=== PATIENT | male | born 1955 ===

== ENCOUNTER 2017-07-25 08:08 | Observation (INO) | payer OTHER ==
[2017-07-25 08:20] VITALS: BMI 30.7
[2017-07-25] MEDS ORDERED: Iohexol 240 (50 ml) PO ONE (08:37)
[2017-07-25] MEDS ORDERED: Sodium Chloride 0.9% 1,000 ML IV STA (08:37)
--- NOTE | 2017-07-25 09:01 | ED PDOC ---
HPI:Nausea, Vomiting, Diarrhea Time Seen by Provider: 07/25/17 08:11 Chief Complaint (Nursing): Abdominal Pain Chief Complaint (Provider): nausea, vomiting History Per: Patient History/Exam Limitations: no limitations Onset/Duration Of Symptoms: Hrs, Sudden Onset Current Symptoms Are (Timing): Still Present Have you had recent travel within the past 21 days to any of the following countries: [place], [place], [place] or [place]?: No Associated Symptoms: Nausea, Vomiting. denies: Fever, Back Pain, Chest Pain, Urinary Symptoms Additional History Per: Patient Additional Complaint(s): 62yo male,with history of hypertension and high cholesterol, presents to ED with complaints of sudden onset vomiting x 5 since last night. Patient states the vomiting is non-bloody and non-bilious and is associated with nausea and abdominal pain. Patient states his last bowel movement was yesterday, which was normal. He denies any fever, chills, chest pain, diarrhea, shortness of breath, hematemesis, back pain, or urinary symptoms. He denies any new food or drinks in his diet as well. He has no other complaints. PMD: Dr. Desir Past Medical History Reviewed: Historical Data, Nursing Documentation, Vital Signs Vital Signs: Last Vital Signs Temp 99.0 F 07/25/17 08:20 Pulse 100 H 07/25/17 08:20 Resp 18 07/25/17 08:20 BP 115/82 07/25/17 08:20 Pulse Ox 99 07/25/17 08:20 - Medical History PMH: HTN, Hypercholesterolemia Denies: Diabetes - Surgical History Surgical History: No Surg Hx - Family History Family History: States: Unknown Family Hx - Home Medications Home Medications: Ambulatory Orders Medication Instructions Recorded Acetaminophen [Tylenol 325mg tab] 650 mg PO Q6H PRN #60 tab 07/26/17 Amlodipine Besylate/Benazepril 1 cap PO DAILY #30 capsule 07/26/17 [Amlodipine-Benazepril 10-40 mg] Aspirin [Ecotrin] 81 mg PO DAILY #30 tabec 07/26/17 Atorvastatin [Lipitor] 40 mg PO HS #30 tab 07/26/17 Calcium Carbonate 1,250 mg PO TID #90 tab 07/26/17 Cholecalciferol [Vitamin D 1000 IU] 2,000 iu PO BID #60 tab 07/26/17 Metoprolol Succinate [Toprol XL] 25 mg PO DAILY #30 tab 07/26/17 Omeprazole 20 mg PO DAILY #30 capsule. 07/26/17 - Allergies Allergies/Adverse Reactions: Allergies Allergy/AdvReac Type Severity Reaction Status Date / Time No Known Allergies Allergy Verified 07/25/17 08:23 Review of Systems ROS Statement: Except As Marked, All Systems Reviewed And Found Negative Constitutional: Negative for: Fever, Chills Cardiovascular: Negative for: Chest Pain Respiratory: Negative for: Shortness of Breath Gastrointestinal: Positive for: Nausea, Vomiting, Abdominal Pain. Negative for : Diarrhea, Constipation, Hematemesis Genitourinary Male: Negative for: Dysuria, Incontinence, Hematuria Musculoskeletal: Negative for: Back Pain Physical Exam - Reviewed Nursing Documentation Reviewed: Yes Vital Signs Reviewed: Yes - Physical Exam Appears: Positive for: Non-toxic Head Exam: Positive for: ATRAUMATIC, NORMAL INSPECTION, NORMOCEPHALIC Skin: Positive for: Normal Color, Warm, Dry Eye Exam: Positive for: Normal appearance, EOMI, PERRL Neck: Positive for: Normal, Painless ROM, Supple Cardiovascular/Chest: Positive for: Regular Rate, Rhythm. Negative for: Murmur Respiratory: Positive for: Normal Breath Sounds. Negative for: Wheezing Gastrointestinal/Abdominal: Positive for: Soft, Tenderness (mid upper abdomen tenderness). Negative for: Mass, Rebound Back: Positive for: Normal Inspection. Negative for: L CVA Tenderness, R CVA Tenderness Extremity: Positive for: Normal ROM. Negative for: Pedal Edema, Deformity Neurologic/Psych: Positive for: Alert, Oriented. Negative for: Motor/Sensory Deficits - Laboratory Results Result Diagrams: 07/25/17 09:03 07/25/17 09:03 Interpretation Of Abn Labs: 12.1 wbc - ECG ECG: Positive for: Interpreted By Me, Viewed By Me ECG Rhythm: Positive for: Nonspecific Changes (lateral) O2 Sat by Pulse Oximetry: 99 (RA) Pulse Ox Interpretation: Normal Medical Decision Making Medical Decision Making: Impression: Abdominal pain with nausea and vomiting Plan: -- Labs -- Zofran 4mg IV -- IV Fluids -- Pepcid 20mg IV -- Toradol 15mg IV -- CT Abdomen and Pelvis with PO and IV Contrast Time: 1300 CT Abdomen/Pelvis FINDINGS: LOWER THORAX: Elevated right hemidiaphragm, nonspecific. No pleural or pericardial effusion or infiltrate bilaterally. LIVER: Unremarkable. No gross lesion or ductal dilatation. GALLBLADDER AND BILE DUCTS: A mildly distended gallbladder is appreciated which is otherwise unremarkable. No direct finding to suspect acute cholecystitis at this time. Clinically correlate nevertheless. PANCREAS: Unremarkable. No gross lesion or ductal dilatation. SPLEEN: Unremarkable. ADRENALS: Unremarkable. No mass. KIDNEYS AND URETERS: Unremarkable. No hydronephrosis. No solid mass. VASCULATURE: Unremarkable. No aortic aneurysm. BOWEL: No bowel obstruction appreciable as imaged. Sigmoid diverticulosis again identified without diverticulitis. The stomach is mildly distended with oral contrast appear unremarkable otherwise. APPENDIX: Normal appendix. PERITONEUM: Unremarkable. No free fluid. No free air. LYMPH NODES: Unremarkable. No enlarged lymph nodes. BLADDER: Unremarkable. REPRODUCTIVE: Enlarged prostate gland. BONES: No acute fracture. OTHER FINDINGS: None. IMPRESSION: Nonacute abdomen pelvis CT examination. Elevated right hemidiaphragm appreciated of uncertain origin. Sigmoid diverticulosis without diverticulitis. Gallbladder is distended but otherwise appears unremarkable. Time: 1350 Due to distended gallbladder, US Abdomen ordered. Scribe Attestation: Documented by Samantha Shah acting as a scribe for Kamar Kwok MD Provider Attestation: All medical record entries made by the Scribe were at my direction and personally dictated by me. I have reviewed the chart and agree that the record accurately reflects my personal performance of the history, physical exam, medical decision making, and the department course for this patient. I have also personally directed, reviewed, and agree with the discharge instructions and disposition. Disposition - Clinical Impression Clinical Impression: Abnormal EKG - Patient ED Disposition Is Patient to be Admitted: Transfer of Care - Disposition Disposition: Transfer of Care Disposition Time: 15:00 Condition: STABLE Patient Signed Over To: Dano Lunsford Handoff Comments: Pending US studies, possible admission.
[2017-07-25 09:07] LABS: BASO % 0.1 % (0.0-2.0); EOS # 0.1 K/uL (0.0-0.7); EOS % 0.4 % (0.0-4.0); HEMOGLOBIN 14.5 g/dL (12.0-18.0); LYMPH # 0.4 K/uL (1.0-4.3); LYMPH % 3.3 % (20.0-40.0); MEAN CELL VOLUME 92.3 fl (80.0-94.0); MEAN CORPUSCULAR HEMOGLOBIN 31.3 pg (27.0-31.0); MEAN CORPUSCULAR HGB CONC 33.9 g/dL (33.0-37.0); MEAN PLATELET VOLUME 8.5 fl (7.2-11.7); MONO # 0.4 K/uL (0.0-0.8); NEUT # 11.3 K/uL (1.8-7.0); NEUT % 93.2 % (50.0-75.0); NRBC % 0.1 % (0.0-0.0); PLATELET COUNT 236 K/uL (130-400); RBC 4.64 Mil/uL (4.40-5.90); RED CELL DISTRIBUTION WIDTH 13.3 % (11.5-14.5); WHITE BLOOD COUNT 12.1 K/uL (4.8-10.8)
[2017-07-25 09:23] LABS: ALB/GLOB RATIO 1.2 (1.0-2.1); ALBUMIN 4.2 g/dL (3.5-5.0); ALT/SGPT 62 U/L (21-72); AST/SGOT 44 U/L (17-59); BLOOD UREA NITROGEN 15 mg/dl (9-20); CALCIUM 9.1 mg/dL (8.4-10.2); GFR AFRICAN-AMERICAN > 60; GFR NON-AFRICAN AMERICAN > 60; LIPASE 78 U/L (23-300); PARTIAL THROMBOPLASTIN TIME 27.3 Seconds (25.6-37.1); PROTHROMBIN TIME 11.6 Seconds (9.8-13.1)
[2017-07-25] MEDS ORDERED: Iohexol 240 (50 ml) ONE (09:35)
--- NOTE | 2017-07-25 09:44 | CARD ---
APPROVED REPORT EKG Measurement Heart [id number] <Conclusion> Normal sinus rhythm Left axis deviation ST & T wave abnormality, consider anterior ischemia Abnormal ECG
[2017-07-25 10:52] LABS: BANDS 3 % (0-2); LYMPHOCYTE 1 % (20-50); MONOCYTE 4 % (0-10); NEUTROPHIL 91 % (42-75); REACTIVE LYMPHOCYTES 1 % (0-0); TOTAL CELLS COUNTED 100
[2017-07-25 10:53] LABS: PLATELET ESTIMATE NORMAL (NORMAL)
[2017-07-25] MEDS ORDERED: Iohexol 300 100 ML IJ ONE (11:53)
[2017-07-25] MEDS ORDERED: Sodium Chloride 0.9% 100 ML ONE (11:53)
--- NOTE | 2017-07-25 12:52 | CT ---
PROCEDURE: CT Abdomen and Pelvis with contrast HISTORY: abd pain COMPARISON: None. TECHNIQUE: Following oral and intravenous contrast administration, a CT examination of the abdomen and pelvis performed from the domes of the diaphragms to the symphysis pubis with reformatted datasets provided not only axial but also sagittal and coronal series. Contrast dose: Omnipaque 300, 95 cc Radiation dose: Total exam DLP = 672.61 mGy-cm. This CT exam was performed using one or more of the following dose reduction techniques: Automated exposure control, adjustment of the mA and/or kV according to patient size, and/or use of iterative reconstruction technique. FINDINGS: LOWER THORAX: Elevated right hemidiaphragm, nonspecific. No pleural or pericardial effusion or infiltrate bilaterally. LIVER: Unremarkable. No gross lesion or ductal dilatation. GALLBLADDER AND BILE DUCTS: A mildly distended gallbladder is appreciated which is otherwise unremarkable. No direct finding to suspect acute cholecystitis at this time. Clinically correlate nevertheless. PANCREAS: Unremarkable. No gross lesion or ductal dilatation. SPLEEN: Unremarkable. ADRENALS: Unremarkable. No mass. KIDNEYS AND URETERS: Unremarkable. No hydronephrosis. No solid mass. VASCULATURE: Unremarkable. No aortic aneurysm. BOWEL: No bowel obstruction appreciable as imaged. Sigmoid diverticulosis again identified without diverticulitis. The stomach is mildly distended with oral contrast appear unremarkable otherwise. APPENDIX: Normal appendix. PERITONEUM: Unremarkable. No free fluid. No free air. LYMPH NODES: Unremarkable. No enlarged lymph nodes. BLADDER: Unremarkable. REPRODUCTIVE: Enlarged prostate gland. BONES: No acute fracture. OTHER FINDINGS: None. IMPRESSION: Nonacute abdomen pelvis CT examination. Elevated right hemidiaphragm appreciated of uncertain origin. Sigmoid diverticulosis without diverticulitis. Gallbladder is distended but otherwise appears unremarkable.
--- NOTE | 2017-07-25 15:22 | ED PDOC ---
- Laboratory Results Result Diagrams: 07/25/17 09:03 07/25/17 09:03 - ECG O2 Sat by Pulse Oximetry: 99 (RA) Medical Decision Making Medical Decision Making: Time: 15:00 Patient is signed over to me by Dr. Norma Kwok pending US and reevaluation. Time: 1540 US Abdomen FINDINGS: LIVER: Measures 15.9 cm in length. Normal echogenicity of the liver parenchyma. No mass. No intrahepatic bile duct dilatation. GALLBLADDER: Unremarkable. No gallstones. COMMON BILE DUCT: Measures 3.7 mm. No stones. No dilatation. PANCREAS: Unremarkable as visualized. No mass. No ductal dilatation. RIGHT KIDNEY: Measures 5.1 x 11 cm in length. Normal echogenicity. No calculus, mass, or hydronephrosis. AORTA: No aneurysmal dilatation. IVC: Unremarkable. OTHER FINDINGS: None . IMPRESSION: No significant or acute findings to account for/ related to the clinical presentation. Time: 1617 [facility] under Dr. Griffiths for abdominal pain, lateral changes in EKG. FP resident aware. Plan discussed with patient who is agreeable. Scribe Attestation: Documented by Samantha Shah acting as a scribe for Dano Lunsford MD. Scribe Attestation: All medical record entries made by the Scribe were at my direction and personally dictated by me. I have reviewed the chart and agree that the record accurately reflects my personal performance of the history, physical exam, medical decision making, and the department course for this patient. I have also personally directed, reviewed, and agree with the discharge instructions and disposition. Disposition Counseled Patient/Family Regarding: Diagnosis - Clinical Impression Clinical Impression: Abnormal EKG - POA Present On Arrival: None - Disposition Disposition: Hospitalized as Observation Patient Disposition Time: 16:00 Condition: STABLE
--- NOTE | 2017-07-25 15:44 | US ---
HISTORY: distended gall bladder COMPARISON: None. TECHNIQUE: Sonographic evaluation of the right upper quadrant of the abdomen. FINDINGS: LIVER: Measures 15.9 cm in length. Normal echogenicity of the liver parenchyma. No mass. No intrahepatic bile duct dilatation. GALLBLADDER: Unremarkable. No gallstones. COMMON BILE DUCT: Measures 3.7 mm. No stones. No dilatation. PANCREAS: Unremarkable as visualized. No mass. No ductal dilatation. RIGHT KIDNEY: Measures 5.1 x 11 cm in length. Normal echogenicity. No calculus, mass, or hydronephrosis. AORTA: No aneurysmal dilatation. IVC: Unremarkable. OTHER FINDINGS: None . IMPRESSION: No significant or acute findings to account for/ related to the clinical presentation.
--- NOTE | 2017-07-25 19:40 | CP.PCM.HP ---
History of Present Illness - History of Present Illness History of Present Illness: 62 yo ,m, PMhx/o HTN, HLD, MEN 1, hx/o Left arm DVT 1 year ago presents to ED c/ o sudden nausea and 5 episodes of non-bloddy, non-billious vomiting started last night about midnight 12:00 AM w/o associated abd pain. Patient reports had dinner early 8:30 and after dinner he ate 2 sweat ray and started feeling nauseous at midnight, with vomiting with food content, and very weak in the morning due to dehydration. He also reports dry cough and dry throat started 1 day ago. He denies fever, chest pain, SOB, heartburn, hx/o gastritis, odd food ingestion, sick contact , recent travel. Patient reports a recent parathyroid surgery 1 month ago. Denies hx/o CAD, but reports a coronary catheterization 2 years ago with mild coronary obstruction w/o needing stent. Denies hx/o exertional or resting precordial chest pain. Reports left arm DVT 1 year ago and had treatment Coumadin x 6 months. On evaluation in ED patient well hydrated , denies abd pain to his history, vomiting subsided and he was able to tolerate a tray of food w/o vomiting. PMD: Eva Collazo Clerical Administrator: Dr Horvath PMHX: HTN, HLD, MEN 1, hx/o Left arm DVT 1 Allergies: NKDA Meds: Aspirin 82 mg daily, Atorvastatin 40 mg daily, Calcium Carbonate 1250 1 tab TID, Cholecalciferol 2000 U daily, Metoprolol succinate 25 mg daily, Amlodipine/Benazepril 10-40 ) 1 tab daily Omeprazol 20 mg daily PSurghx: Parathyroidectomy 1 month ago with one parathyroid graft as per patient PFhx: 2 son with MEN 1, 1 sister with MEN 1 PShx: +ETOH occs, denies rect drugs, cig Status: full code ED course VS: normal except HR: 100 PE: Abd: skin superficial small nodules scattered on abd and back. No TD. Labs: CBC : 12.2 >14.5<236 CMP: normal leukocytosis with left shift deviation. Lymphopenia. -EKG T wave inversion V1-V4. No old EKG to compare -Troponin in ED neg Imaging: CT Abd: Non acute abdomen pelvis CT examination. Elevated right hemidiaphragm appreciated of uncertain origin. Sigmoid diverticulosis without diverticulitis. Gallbladder is distended but otherwise appears unremarkable. Abs US: Normal Meds: Famotidine, Toradol, Zofran, NS 1L Present on Admission - Present on Admission Any Indicators Present on Admission: Yes History of DVT/PE: Yes History of Uncontrolled Diabetes: No Urinary Catheter: No Decubitus Ulcer Present: No Review of Systems - Review of Systems All systems: reviewed and no additional remarkable complaints except - Respiratory Respiratory: Cough - Gastrointestinal Gastrointestinal: Nausea, Vomiting Past Patient History - Infectious Disease Hx of Infectious Diseases: None - Past Social History Smoking Status: Never Smoked - CARDIAC Hx Hypercholesterolemia: Yes Hx Hypertension: Yes - PSYCHIATRIC Hx Substance Use: No - SURGICAL HISTORY Hx Parathyroidectomy: Yes - ANESTHESIA Hx Anesthesia: Yes Hx Anesthesia Reactions: No Meds Allergies/Adverse Reactions: Allergies Allergy/AdvReac Type Severity Reaction Status Date / Time No Known Allergies Allergy Verified 07/25/17 08:23 Physical Exam - Constitutional Appears: Non-toxic, No Acute Distress - Head Exam Head Exam: ATRAUMATIC, NORMOCEPHALIC - Eye Exam Eye Exam: Normal appearance - ENT Exam ENT Exam: Mucous Membranes Moist Additional comments: oropharynx erythema. b/l tonsil erythema. no exudate seen - Neck Exam Neck exam: Positive for: Full Rom, Normal Inspection - Respiratory Exam Respiratory Exam: Clear to Auscultation Bilateral. absent: Rales, Rhonchi, Wheezes - Cardiovascular Exam Cardiovascular Exam: REGULAR RHYTHM, +S1, +S2 - GI/Abdominal Exam GI & Abdominal Exam: Normal Bowel Sounds, Rebound, Soft. absent: Guarding, Tenderness - Extremities Exam Extremities exam: Positive for: normal capillary refill, normal inspection. Negative for: pedal edema - Back Exam Back exam: NORMAL INSPECTION - Neurological Exam Neurological exam: Alert, Oriented x3 - Psychiatric Exam Psychiatric exam: Normal Affect, Normal Mood - Skin Additional comments: skin superficial small nodules scattered on abd and back Results - Vital Signs Recent Vital Signs: Last Vital Signs Temp 99.0 F 07/25/17 08:20 Pulse 100 H 07/25/17 08:20 Resp 18 07/25/17 08:20 BP 115/82 07/25/17 08:20 Pulse Ox 99 07/25/17 16:22 - Labs Result Diagrams: 07/25/17 09:03 04/26/18 09:03 Labs: Laboratory Results - last 24 hr 07/25/17 07/25/17 07/25/17 09:03 09:03 09:03 WBC 12.1 H RBC 4.64 Hgb 14.5 Hct 42.8 MCV 92.3 MCH 31.3 H MCHC 33.9 RDW 13.3 Plt Count 236 MPV 8.5 Neut % (Auto) 93.2 H Lymph % (Auto) 3.3 L Yancey % (Auto) 3.0 Eos % (Auto) 0.4 Baso % (Auto) 0.1 Neut # (Auto) 11.3 H Lymph # (Auto) 0.4 L Yancey # (Auto) 0.4 Eos # (Auto) 0.1 Baso # (Auto) 0.0 Neutrophils % (Manual) 91 H Band Neutrophils % 3 H Lymphocytes % (Manual) 1 L Reactive Lymphs % 1 H Monocytes % (Manual) 4 Platelet Estimate Normal RBC Morphology Normal PT 11.6 INR 1.0 APTT 27.3 Sodium 146 Potassium 3.7 Chloride 105 Carbon Dioxide 25 Anion Gap 20 BUN 15 Creatinine 0.9 Est GFR ( Amer) > 60 Est GFR (Non-Af Amer) > 60 Random Glucose 150 H Calcium 9.1 Total Bilirubin 0.7 AST 44 ALT 62 Alkaline Phosphatase 63 Troponin I < 0.0120 Total Protein 7.7 Albumin 4.2 Globulin 3.4 Albumin/Globulin Ratio 1.2 Lipase 78 Assessment & Plan - Assessment and Plan (Free Text) Plan: 62 yo ,m, PMhx/o HTN, HLD, MEN 1, hx/o Left arm DVT 1 year ago admitted for abnormal EKG and dyspepsia 1) Dyspepsia Secondary to mild dietary indigestion of food -denies hx/o gastritis, GERD, abd pain -CT Abd: sigmoid diverticulosis w/o diverticulitis. Gallbladder is distended but otherwise appears unremarkable. Elevated right hemidiaphragm appreciated of uncertain origin -Abd US : normal -s/p zofran, pepcid, IV fluids ED -Patient tolerated regular diet in Ed -c/w liquid diet -zofran nausea PRN -Pepcid 20 mg daily 2) Abnormal EKG may be secondary to CAD in a patient with MEN 1 ( hypercalcemia) to r/o ACS -no chest pain, but with nausea and vomiting Hx/o coronary catheterization 2 years ago w/o stent -EKG T wave inversion V1-V4. No old EKG to compare -Troponin in ED neg -F/u troponin x2, f/u EKG 3) Cough May be secondary to URI onset -noticed leukocytosis with left shift deviation -CT Abd: Elevated right hemidiaphragm appreciated of uncertain origin -f/u CBC -f/u CXR 4) HTN -Controlled -c/w home medication 5) MEN 1 -recent parathyroid surgery [facility] -Fhx/o MEN 1 on 2 son, 1 sister -Ca level normal. -c/w Calcium and Vit D supplements -will monitor 6) Hx/o DVT -Left arm after coronary catheterization 2 years ago -had treatment with Coumadin x 6 months 7) DVT Prophylaxis -Lovenox 40 mg SC daily
[2017-07-26 07:36] VITALS: TEMP 98.6
[2017-07-26] MEDS ORDERED: Enoxaparin 40 mg Syringe SC SCH (09:00)
[2017-07-26] MEDS ORDERED: AMLODIPINE BESYLATE PO SCH (09:00)
[2017-07-26] MEDS ORDERED: Pantoprazole 20 mg EC Tab PO SCH (09:00)
[2017-07-26] MEDS ORDERED: BENAZEPRIL PO SCH (09:00)
[2017-07-26] MEDS ORDERED: Metoprolol Succinate 25 mg XL Tab PO SCH (09:00)
[2017-07-26] MEDS ORDERED: [UNRECOGNIZED DRUG - OTHER] PO SCH (09:00)
[2017-07-26] MEDS: Cholecalciferol 1,000 INTLU TAB PO SCH ×2 (09:02→16:16)
--- NOTE | 2017-07-26 09:05 | RAD ---
HISTORY: cough.abnormal EKG COMPARISON: No prior. TECHNIQUE: Chest PA and lateral FINDINGS: LUNGS: No active pulmonary disease. PLEURA: No significant pleural effusion identified. No pneumothorax apparent. CARDIOVASCULAR: Atherosclerotic aortic calcifications. Cardiomediastinal silhouette within normal limits. OSSEOUS STRUCTURES: Degenerative changes. VISUALIZED UPPER ABDOMEN: Retained oral contrast from recent CT scan of the abdomen and pelvis. OTHER FINDINGS: None. IMPRESSION: No active disease.
--- NOTE | 2017-07-26 09:30 | CP.PCM.PN ---
Subjective - Date & Time of Evaluation Date of Evaluation: 07/26/17 Time of Evaluation: 08:50 - Subjective Subjective: Pt seen and examined at bedside. Reports slight, non productive cough. Denies significant overnght events, denies: CP/SOB/N/V. Denies abdominal pain. Objective - Vital Signs/Intake and Output Vital Signs (last 24 hours): Temp Pulse Resp BP Pulse Ox 98.6 F 66 18 111/69 96 07/26/17 07:36 07/26/17 09:04 07/26/17 07:36 07/26/17 09:04 07/26/17 07:36 - Medications Medications: Current Medications Acetaminophen (Tylenol 325mg Tab) 650 mg PO Q6 PRN PRN Reason: Pain, Mild (1-3) Acetaminophen (Tylenol 325mg Tab) 650 mg PO Q6 PRN PRN Reason: Fever >100.4 F Amlodipine Besylate (Norvasc) 10 mg PO DAILY [facility] Last Admin: 07/26/17 09:03 Dose: 10 mg Aspirin (Ecotrin) 81 mg PO DAILY [facility] Last Admin: 07/26/17 09:03 Dose: 81 mg Atorvastatin Calcium (Lipitor) 40 mg PO HS [facility] Calcium Carbonate (Oscal) 1,250 mg PO TID [facility] Last Admin: 07/26/17 09:01 Dose: 1,250 mg Cholecalciferol (Vitamin D) 2,000 intlu PO BID [facility] Last Admin: 07/26/17 09:02 Dose: 2,000 intlu Enoxaparin Sodium (Lovenox) 40 mg SC DAILY [facility] PRN Reason: Protocol Last Admin: 07/26/17 09:01 Dose: 40 mg Lisinopril (Zestril) 40 mg PO DAILY [facility] Last Admin: 07/26/17 09:02 Dose: 40 mg Metoprolol Succinate (Toprol Xl) 25 mg PO DAILY [facility] Last Admin: 07/26/17 09:04 Dose: 25 mg Morphine Sulfate (Morphine) 2 mg IVP Q4 PRN PRN Reason: Pain, severe (8-10) Ondansetron HCl (Zofran Inj) 4 mg IVP Q6 PRN PRN Reason: Nausea/Vomiting Pantoprazole Sodium (Protonix Ec Tab) 20 mg PO DAILY [facility] Last Admin: 07/26/17 09:04 Dose: 20 mg - Labs Labs: 07/25/17 09:03 07/25/17 09:03 PT 11.6 Seconds (9.8-13.1) 07/25/17 09:03 INR 1.0 (0.9-1.2) 07/25/17 09:03 APTT 27.3 Seconds (25.6-37.1) 07/25/17 09:03 - Constitutional Appears: Well, No Acute Distress - Eye Exam Eye Exam: EOMI - Respiratory Exam Respiratory Exam: Clear to Ausculation Bilateral, NORMAL BREATHING PATTERN. absent: Wheezes - Cardiovascular Exam Cardiovascular Exam: +S1, +S2 - GI/Abdominal Exam GI & Abdominal Exam: Soft, Normal Bowel Sounds. absent: Tenderness - Neurological Exam Neurological Exam: Alert, Awake, CN II-XII Intact, Oriented x3 - Psychiatric Exam Psychiatric exam: Normal Affect, Normal Mood Assessment and Plan - Assessment and Plan (Free Text) Plan: 62 yo ,m, PMhx/o HTN, HLD, MEN 1, hx/o Left arm DVT 1 year ago admitted for abnormal EKG and dyspepsia Dyspepsia -Secondary to mild dietary indigestion of food -denies hx/o gastritis, GERD, abd pain; N/V resolved -CT Abd: sigmoid diverticulosis w/o diverticulitis. Gallbladder is distended but otherwise appears unremarkable. Elevated right hemidiaphragm appreciated of uncertain origin -Abd US: unremarkable -s/p zofran, pepcid, IV fluids ED -Patient tolerated regular diet in Ed -c/w liquid diet -Pepcid 20 mg daily -Pending surgery consult. Abnormal EKG -may be secondary to CAD in a patient with MEN 1 (hypercalcemia) -r/o ACS -no chest pain -Hx/o coronary catheterization 2 years ago w/o stent -EKG T wave inversion V1-V4. No old EKG to compare; f/u: EKG: non specific ST abnormality -Troponin neg x 3 -Cardiology consulted: Dr. Land recommendations appreciated Cough -May be secondary to URI onset -noticed leukocytosis with left shift deviation -CT Abd: Elevated right hemidiaphragm appreciated of uncertain origin -f/u CBC -CXR: no active disease HTN -Controlled -c/w home medication MEN 1 -recent parathyroid surgery [facility] -Fhx/o MEN 1 on 2 son, 1 sister -Ca level normal. -Amylase/lipase: wnl -c/w Calcium and Vit D supplements -will monitor Hx/o DVT -Left arm after coronary catheterization 2 years ago -had treatment with Coumadin x 6 months DVT Prophylaxis -Lovenox 40 mg SC daily Disposition planning - Pending cardiology eval
--- NOTE | 2017-07-26 10:19 | CARD ---
APPROVED REPORT EKG Measurement Heart [id number] <Conclusion> Normal sinus rhythm Nonspecific ST abnormality Abnormal ECG
--- NOTE | 2017-07-26 14:19 | CP.PCM.CON ---
History of Present Illness - History of Present Illness History of Present Illness: General Surgery Consult for Dr. Brown Reason for consult: nausea/vomiting, GB wall thickening 62M with PMH that includes HTN, HLD, MEN 1 presents to [facility] for complaint of nausea/vomiting. Patient was admitted on 07/25. Patient States that symptoms began on Saturday. He reports 5 episodes of non-bloody, non-billious emesis that day. Patient states that he ate dinner prior to onset of symptoms. Patient reports never having these symptoms in the past. He denies any abdominal pain. Patient has not had any nausea/vomiting since prior to coming to the hospital. Denies any alleviating or aggravating factors. Denies sick contacts or recent ilness. Denies fever/chills, weakness, fatigue, cp, SOB, abdominal pain, diarrhea, incontinence, urinary symptoms. PMD: Eva Collazo PMH: HTN, HLD, MEN 1, h/o Left arm DVT Meds: As per EMR Allergies: NKDA PSH: Parathyroidectomy FH: 2 sons and 1 sister with MEN 1 Social: denies tobaccoor illicit drug use, EtOH socially, lives with Review of Systems - Review of Systems All systems: reviewed and no additional remarkable complaints except (as per HPI ) Past Patient History - Infectious Disease Hx of Infectious Diseases: None - Past Medical History & Family History Past Medical History?: No - Past Social History Smoking Status: Never Smoked - CARDIAC Hx Cardiac Disorders: Yes (HTN, high cholesterol) Hx Angina: No Hx Atrial Fibrillation: No Hx Cardia Arrhythmia: No Hx Circulatory Problems: No Hx Congestive Heart Failure: No Hx Heart Attack: No Hx Heart Murmur: No Hx Heart Transplant: No Hx Hypercholesterolemia: No Hx Hypertension: Yes Hx Hypotension: No Hx Internal Defibrillator: No Hx Mitral Valve Prolapse: No Hx Pacemaker: No Hx Peripheral Edema: No Hx Peripheral Vascular Disease: No - PULMONARY Hx Respiratory Disorders: No - NEUROLOGICAL Hx Neurological Disorder: No - HEENT Hx HEENT Problems: No - RENAL Hx Chronic Kidney Disease: No - ENDOCRINE/METABOLIC Hx Endocrine Disorders: No - HEMATOLOGICAL/ONCOLOGICAL Hx Blood Disorders: No Hx AIDS: No Hx Anemia: No Hx Blood Transfusions: No Hx Blood Transfusion Reaction: No Hx Bruising: No Hx Cancer: No Hx Chemotherapy: No Hx Cirrhosis: No Hx Gum Bleeding: No Hx Hemophilia: No Hx Hepatitis A: No Hx Hepatitis B: No Hx Hepatitis C: No Hx Human Immunodeficiency Virus (HIV): No Hx Leukemia: No Hx Metastesis: No Hx Shingles: No Hx Sickle Cell Disease: No Hx Unexplained Bleeding: No Hx von Willebrand's Disease: No - INTEGUMENTARY Hx Dermatological Problems: No Hx Basil Cell: No Hx Ibanez: No Hx Cellulitis: No Hx Eczema: No Hx Melanoma: No Hx Psoriasis: No Hx Squamous Cell: No - MUSCULOSKELETAL/RHEUMATOLOGICAL Hx Musculoskeletal Disorders: No Hx Arthritis: No Hx Back Pain: No Hx Degenerative Joint Disease: No Hx Falls: No Hx Fractures: No Hx Gout: No Hx Herniated Disk: No Hx Myasthenia Gravis: No Hx Osteoarthritis: No Hx Osteomyelitis: No Hx Osteoporosis: No Hx Rhabdomyolysis: No Hx Rheumatoid Arthritis: No Hx Spinal Stenosis: No Hx Unsteady Gait: No - GASTROINTESTINAL Hx Gastrointestinal Disorders: No Hx Bowel Surgery: No Hx Clostridium Difficile: No Hx Colitis: No Hx Colostomy: No Hx Constipation: No Hx Crohn's Disease: No Hx Diarrhea: No Hx Diverticulitis: No Hx Esophageal Varices: No Hx Fatty Liver Disease: No Hx Gall Bladder Disease: No Hx Gastritis: No Hx Gastroesophageal Reflux: No Hx Hemorrhoids: No Hx Ileostomy: No Hx Irritable Bowel: No Hx Liver Failure: No Hx Nausea: No Hx Pancreatitis: No HX Swallowing Problems: No Hx Ulcer: No Hx Vomiting: No - GENITOURINARY/GYNECOLOGICAL Hx Genitourinary Disorders: No Hx Bladder Cancer: No Hx Bladder Stone: No Hx Hematuria: No Hx Incontinence: No Hx Prostate Cancer: No Hx Prostate Problems: No Hx Reproductive Disorders: No Hx Sexually Transmitted Disorders: No Hx Urinary Tract Infection: No - PSYCHIATRIC Hx Psychophysiologic Disorder: No Hx Anxiety: No Hx Bipolar Disorder: No Hx Depression: No Hx Emotional Abuse: No Hx Hallucinations: No Hx Panic Symptoms: No Hx Paranoia: No Hx Post Traumatic Stress Disorder: No Hx Psychosis: No Hx Physical Abuse: No Hx Schizophrenia: No Hx Sexual Abuse: No Hx Substance Use: No - SURGICAL HISTORY Hx Parathyroidectomy: Yes - ANESTHESIA Hx Anesthesia: Yes Hx Anesthesia Reactions: No Meds Allergies/Adverse Reactions: Allergies Allergy/AdvReac Type Severity Reaction Status Date / Time No Known Allergies Allergy Verified 07/25/17 08:23 - Medications Medications: Current Medications Acetaminophen (Tylenol 325mg Tab) 650 mg PO Q6 PRN PRN Reason: Pain, Mild (1-3) Acetaminophen (Tylenol 325mg Tab) 650 mg PO Q6 PRN PRN Reason: Fever >100.4 F Amlodipine Besylate (Norvasc) 10 mg PO DAILY [facility] Last Admin: 07/26/17 09:03 Dose: 10 mg Aspirin (Ecotrin) 81 mg PO DAILY [facility] Last Admin: 07/26/17 09:03 Dose: 81 mg Atorvastatin Calcium (Lipitor) [address] [facility] Cholecalciferol (Vitamin D) 2,000 intlu PO BID [facility] Last Admin: 07/26/17 09:02 Dose: 2,000 intlu Enoxaparin Sodium (Lovenox) 40 mg SC DAILY [facility] PRN Reason: Protocol Last Admin: 07/26/17 09:01 Dose: 40 mg Lisinopril (Zestril) 40 mg PO DAILY [facility] Last Admin: 07/26/17 09:02 Dose: 40 mg Metoprolol Succinate (Toprol Xl) 25 mg PO DAILY [facility] Last Admin: 07/26/17 09:04 Dose: 25 mg Morphine Sulfate (Morphine) 2 mg IVP Q4 PRN PRN Reason: Pain, severe (8-10) Ondansetron HCl (Zofran Inj) 4 mg IVP Q6 PRN PRN Reason: Nausea/Vomiting Pantoprazole Sodium (Protonix Ec Tab) 20 mg PO DAILY [facility] Last Admin: 07/26/17 09:04 Dose: 20 mg Physical Exam - Constitutional Appears: Well, Non-toxic, No Acute Distress - Head Exam Head Exam: ATRAUMATIC, NORMOCEPHALIC - Eye Exam Eye Exam: EOMI, Normal appearance Pupil Exam: PERRL - ENT Exam ENT Exam: Mucous Membranes Moist - Respiratory Exam Respiratory Exam: NORMAL BREATHING PATTERN - Cardiovascular Exam Cardiovascular Exam: REGULAR RHYTHM - GI/Abdominal Exam GI & Abdominal Exam: Normal Bowel Sounds, Soft. absent: Distended, Firm, Guarding, Rebound, Rigid, Tenderness Additional comments: (-) garcia's sign - Extremities Exam Extremities exam: Positive for: normal capillary refill, pedal pulses present. Negative for: calf tenderness - Back Exam Back exam: absent: CVA tenderness (L), CVA tenderness (R) - Neurological Exam Neurological exam: Alert, CN II-XII Intact, Oriented x3 - Psychiatric Exam Psychiatric exam: Normal Affect, Normal Mood - Skin Skin Exam: Dry, Intact, Normal Color, Warm Results - Vital Signs Recent Vital Signs: Last Vital Signs Temp 98.6 F 07/26/17 12:18 Pulse 74 07/26/17 12:18 Resp 18 07/26/17 12:18 BP 101/64 07/26/17 12:18 Pulse Ox 97 07/26/17 12:18 - Labs Result Diagrams: 07/25/17 09:03 07/25/17 09:03 Labs: Laboratory Results - last 24 hr 07/25/17 07/26/17 07/26/17 20:14 06:00 07:30 Troponin I < 0.0120 < 0.0120 Amylase 86 Assessment & Plan - Assessment and Plan (Free Text) Assessment: 62 M with nausea/vomiting; ABUS unremarkable Plan: -Regular diet -No surgical intervention needed at this time -Recommend outpatient GI follow up and EGD - patient has history of MEN 1 -Discussed with Dr. Kevin Fenton PGY1
[2017-07-26] MEDS ORDERED: Benzocaine/Menthol (Cepacol) Lozenge PO PRN (14:40)
[2017-07-26 16:14] VITALS: BP 119/74; PULSE 70; RESP 16
[2017-07-26] MEDS ORDERED: Calcium Carbonate 1,250 MG/5 ML SUSP PO SCH (17:00)
--- NOTE | 2017-07-26 17:07 | CP.PCM.DIS ---
Provider - Provider Date of Admission: 07/25/17 16:20 Attending physician: Isha Griffiths MD Time Spent in preparation of Discharge (in minutes): 20 Diagnosis - Discharge Diagnosis (1) Nausea & vomiting Status: Acute (2) Abnormal EKG Status: Acute Hospital Course - Lab Results Lab Results: Most Recent Lab Values WBC 12.1 K/uL (4.8-10.8) H 07/25/17 09:03 RBC 4.64 Mil/uL (4.40-5.90) 07/25/17 09:03 Hgb 14.5 g/dL (12.0-18.0) 07/25/17 09:03 Hct 42.8 % (35.0-51.0) 07/25/17 09:03 MCV 92.3 fl (80.0-94.0) 07/25/17 09:03 MCH 31.3 pg (27.0-31.0) H 07/25/17 09:03 MCHC 33.9 g/dL (33.0-37.0) 07/25/17 09:03 RDW 13.3 % (11.5-14.5) 07/25/17 09:03 Plt Count 236 K/uL (130-400) 07/25/17 09:03 MPV 8.5 fl (7.2-11.7) 07/25/17 09:03 Neut % (Auto) 93.2 % (50.0-75.0) H 07/25/17 09:03 Lymph % (Auto) 3.3 % (20.0-40.0) L 07/25/17 09:03 [place] % (Auto) 3.0 % (0.0-10.0) 07/25/17 09:03 Eos % (Auto) 0.4 % (0.0-4.0) 07/25/17 09:03 Baso % (Auto) 0.1 % (0.0-2.0) 07/25/17 09:03 Neut # (Auto) 11.3 K/uL (1.8-7.0) H 07/25/17 09:03 Lymph # (Auto) 0.4 K/uL (1.0-4.3) L 07/25/17 09:03 Stan[place]aus # (Auto) 0.4 K/uL (0.0-0.8) 07/25/17 09:03 Eos # (Auto) 0.1 K/uL (0.0-0.7) 07/25/17 09:03 Baso # (Auto) 0.0 K/uL (0.0-0.2) 07/25/17 09:03 Neutrophils % (Manual) 91 % (42-75) H 07/25/17 09:03 Band Neutrophils % 3 % (0-2) H 07/25/17 09:03 Lymphocytes % (Manual) 1 % (20-50) L 07/25/17 09:03 Reactive Lymphs % 1 % (0-0) H 07/25/17 09:03 Monocytes % (Manual) 4 % (0-10) 07/25/17 09:03 Platelet Estimate Normal (NORMAL) 07/25/17 09: RBC Morphology Normal (NORMAL) 07/25/17 09:03 PT 11.6 Seconds (9.8-13.1) 07/25/17 09:03 INR 1.0 (0.9-1.2) 07/25/17 09:03 APTT 27.3 Seconds (25.6-37.1) 07/25/17 09:03 Sodium 146 mmol/l (132-148) 07/25/17 09:03 Potassium 3.7 MMOL/L (3.6-5.0) 07/25/17 09:03 Chloride 105 mmol/L (98-107) 07/25/17 09:03 Carbon Dioxide 25 mmol/L (22-30) 07/25/17 09:03 Anion Gap 20 (10-20) 07/25/17 09:03 BUN 15 mg/dl (9-20) 07/25/17 09:03 Creatinine 0.9 mg/dl (0.8-1.5) 07/25/17 09:03 Est GFR ( Amer) > 60 07/25/17 09:03 Est GFR (Non-Af Amer) > 60 07/25/17 09:03 Random Glucose 150 mg/dL (75-110) H 07/25/17 09:03 Calcium 9.1 mg/dL (8.4-10.2) 07/25/17 09:03 Total Bilirubin 0.7 mg/dl (0.2-1.3) 07/25/17 09:03 AST 44 U/L (17-59) 07/25/17 09:03 ALT 62 U/L (21-72) 07/25/17 09:03 Alkaline Phosphatase 63 U/L (38-126) 07/25/17 09:03 Troponin I < 0.0120 ng/mL (0.00-0.120) 07/26/17 06:00 Total Protein 7.7 G/DL (6.3-8.2) 07/25/17 09:03 Albumin 4.2 g/dL (3.5-5.0) 07/25/17 09:03 Globulin 3.4 gm/dL (2.2-3.9) 07/25/17 09:03 Albumin/Globulin Ratio 1.2 (1.0-2.1) 07/25/17 09:03 Amylase 86 U/L (30-110) 07/26/17 07:30 Lipase 78 U/L (23-300) 07/25/17 09:03 - Hospital Course Hospital Course: 62 yo M PMhx/o HTN, HLD, MEN 1, hx/o Left arm DVT 1 year ago admitted for abnormal EKG and dyspepsia Abnormal EKG with repeat. Seen and evaluated by Cardiology: Dr. Land. 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 Brown: recommend f/u EGD in 6 months -CT Abd: sigmoid diverticulosis w/o diverticulitis. Gallbladder is distended but otherwise appears unremarkable. Elevated right hemidiaphragm appreciated of uncertain origin -Abd US: unremarkable Thank you for the opportunity to participate in the care of Roland. Discharge Exam - Head Exam Head Exam: ATRAUMATIC, NORMOCEPHALIC - Eye Exam Eye Exam: EOMI - Neck Exam Neck exam: Full Rom - Respiratory Exam Respiratory Exam: Clear to PA & Lateral, NORMAL BREATHING PATTERN. absent: Wheezes - Cardiovascular Exam Cardiovascular Exam: +S1, +S2 - GI/Abdominal Exam GI & Abdominal Exam: Normal Bowel Sounds, Soft. absent: Tenderness - Neurological Exam Neurological exam: Alert, CN II-XII Intact, Oriented x3 - Psychiatric Exam Psychiatric exam: Normal Affect, Normal Mood Discharge Plan - Discharge Medications Prescriptions: Acetaminophen [Tylenol 325mg tab] 650 mg PO Q6H PRN #60 tab PRN Reason: mild pain Amlodipine Besylate/Benazepril [Amlodipine-Benazepril 10-40 mg] 1 cap PO DAILY # 30 capsule Aspirin [Ecotrin] 81 mg PO DAILY #30 tabec Atorvastatin [Lipitor] 40 mg PO HS #30 tab Calcium Carbonate 1,250 mg PO TID #90 tab Cholecalciferol [Vitamin D 1000 IU] 2,000 iu PO BID #60 tab Metoprolol Succinate [Toprol XL] 25 mg PO DAILY #30 tab Omeprazole 20 mg PO DAILY #30 capsule.dr - Follow Up Plan Condition: STABLE Disposition: HOME/ ROUTINE Instructions: Nausea and Vomiting, Adult Additional Instructions: Pleas follow up with your primary care provider and 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
--- NOTE | 2017-07-26 20:40 | CON ---
CARDIOLOGY CONSULT DATE: REASON FOR CONSULTATION: History of coronary artery disease as well as abnormal EKG. HISTORY OF PRESENT ILLNESS: The patient is a 62-year-old male who has a history of multiple endocrine neoplasia and underwent parathyroidectomy in the past twice. He has a history of coronary artery disease, cardiac catheterization dating back to 2016 revealed significant disease of the posterolateral branch as well as one of diagonal branches, but apparently no intervention was required at that time. The patient presented because of nausea and vomiting. There was no reported chest pain. SOCIAL HISTORY: Nonsmoker. MEDICATIONS: Aspirin 81 mg once a day, Lipitor 40mg once a day, Lovenox 40 mg subcutaneously once a day, Norvasc 10 mg once a day, Toprol-XL 25 mg once a day, Protonix 40 mg once a day, vitamin D 2000 units twice a day, Zestril 40 mg once a day, and Zofran 4 mg intravenously every 6 hours p.r.n. PHYSICAL EXAMINATION: GENERAL: The patient is a middle-aged male who does not appear to be in acute distress. VITAL SIGNS: Blood pressure 101/64, heart rate 74, temperature 98.6, and respirations 18. HEENT: Normocephalic. CHEST: Clear. HEART: S1 and S2 regular. ABDOMEN: Soft. EXTREMITIES: No edema. LABORATORY DATA: Three sets of troponins are negative. SMA-7 is within normal limits except for glucose of 150. PT, INR, and PTT are within normal limits. Hemoglobin and hematocrit are 14.5 and 42.8. White count 12.1 and platelet count 136,000. Abdomen and pelvis CT scan with p.o. and IV contrast, study. Elevated right hemidiaphragm of uncertain etiology. Sigmoid diverticulosis without diverticulitis. Gallbladder is distended, but otherwise unremarkable. Abdominal ultrasound, no significant or acute findings. Chest x-ray was unremarkable. EKG reveals sinus rhythm with nonspecific ST-segment changes. ASSESSMENT: 1. Nausea and vomiting on presentation. 2. History of multiple endocrine neoplasia. 3. History of coronary artery disease involving two branches in posterolateral ventricular branch and diagonal branch. 4. Hypertension. RECOMMENDATIONS: Continue current Zestril, Toprol-XL, Norvasc, Protonix, prophylactic subcutaneous Lovenox, and aspirin at 81 mg once a day. Obtain an echocardiogram. Ta Kahn MD [facility] # [id number]
[2017-07-27 10:06] VITALS: O2SAT 99
== END 2017-07-26 18:00 | disposition home or self-care (01) ==
LOC: H.ER 08:08 → H.ERHOLD 16:20 → H.TEL 21:35
PROVIDERS: ADMIT Family Medicine Geriatric Medicine; ATTEND Family Medicine Geriatric Medicine
DX: R10.13 Epigastric pain (principal); R94.31 Abnormal electrocardiogram [ECG] [EKG]; K57.30 Diverticulosis of large intestine without perforation or abscess without bleeding; R11.2 Nausea with vomiting, unspecified; I10 Essential (primary) hypertension; I25.10 Atherosclerotic heart disease of native coronary artery without angina pectoris; E31.21 Multiple endocrine neoplasia [MEN] type I; R05 Cough; E78.5 Hyperlipidemia, unspecified; E78.00 Pure hypercholesterolemia, unspecified; Z86.718 Personal history of other venous thrombosis and embolism; Z79.82 Long term (current) use of aspirin
CPT/HCPCS: 36415; 71046; 74177; 76705; 80053; 82150; 83690; 84484; 85025; 85610; 85730; 93005; 96372; 96374; 96375; 99285; G0378; J1650; J1885; J2405; J7040; Q9966; Q9967

== ENCOUNTER 2018-04-13 03:38 | Emergency (ER) | payer MEDICAID, OTHER ==
[2018-04-13 03:38] VITALS: BMI 30.7
[2018-04-13 03:47] VITALS: TEMP 98.2
[2018-04-13 05:04] LABS: BLOOD UREA NITROGEN 16 mg/dl (9-20); CALCIUM 9.2 mg/dL (8.4-10.2); GFR NON-AFRICAN AMERICAN > 60
--- NOTE | 2018-04-13 05:14 | ED PDOC ---
HPI: Chest Pain Time Seen by Provider: 04/13/18 03:49 Chief Complaint (Nursing): Chest Pain Chief Complaint (Provider): Chest Pain History Per: Patient History/Exam Limitations: no limitations Current Symptoms Are (Timing): Gone Now Additional Complaint(s): 63 y/o male with history of HTN, hypercholesterolemia, and MEN2 presents to the ED complaining of chest pain, now resolved, sudden onset when he turned onto his stomach in the middle of the night. Patient states the chest pain radiated from his chest down his arm. Patient states he felt like his veins were pulsating. When he changed positions again however the pain went away. Patient notes that when he lays flat on his back he has back pain. Denies leg swelling, shortness of breath, fever, or cough. Past Medical History Reviewed: Historical Data, Nursing Documentation, Vital Signs Vital Signs: Last Vital Signs Temp 98.2 F 04/13/18 03:43 Pulse 68 04/13/18 03:43 Resp 16 04/13/18 03:43 BP 145/86 04/13/18 03:43 Pulse Ox 97 04/13/18 03:43 - Medical History PMH: HTN, Hypercholesterolemia Denies: Anemia, Anxiety, Arthritis, Atrial Fibrillation, Bipolar Disorder, CAD, Cardia Arrhythmia, CHF, Crohn's Disease, Depression, Diabetes, Diverticulitis, Fractures, Gastritis, Gall Bladder Disease, HIV, Mitral Valve Prolapse, Osteoporosis, Pancreatitis, Paranoia, Peripheral Edema, Post Traumatic Stress Disorder, Chronic Kidney Disease, Rheumatoid Arthritis, Schizophrenia, Si ckle Cell Disease, Sexually Transmitted Disease - Surgical History Surgical History: Denies: Pacemaker - Family History Family History: States: Unknown Family Hx - Home Medications Home Medications: Ambulatory Orders Medication Instructions Recorded RX: Acetaminophen [Tylenol 325mg 650 mg PO Q6H PRN #60 tab 07/26/17 tab] RX: Amlodipine Besylate/Benazepril 1 cap PO DAILY #30 capsule 07/26/17 [Amlodipine-Benazepril 10-40 mg] RX: Aspirin [Ecotrin] 81 mg PO DAILY #30 tabec 07/26/17 RX: Atorvastatin [Lipitor] 40 mg PO HS #30 tab 07/26/17 RX: Calcium Carbonate 1,250 mg PO TID #90 tab 07/26/17 RX: Cholecalciferol [Vitamin D 2,000 iu PO BID #60 tab 07/26/17 1000 IU] RX: Metoprolol Succinate XL 25 mg PO DAILY #30 tab 07/26/17 [Toprol XL] RX: Omeprazole 20 mg PO DAILY #30 capsule. 07/26/17 RX: Ibuprofen [Motrin Tab] 600 mg PO Q6 #30 tab 04/13/18 - Allergies Allergies/Adverse Reactions: Allergies Allergy/AdvReac Type Severity Reaction Status Date / Time No Known Allergies Allergy Verified 04/13/18 03:42 Review of Systems ROS Statement: Except As Marked, All Systems Reviewed And Found Negative Constitutional: Negative for: Fever Cardiovascular: Positive for: Chest Pain. Negative for: Edema (Leg swelling) Respiratory: Negative for: Cough, Shortness of Breath Musculoskeletal: Positive for: Back Pain Physical Exam - Reviewed Nursing Documentation Reviewed: Yes Vital Signs Reviewed: Yes - Physical Exam Appears: Positive for: Well, Non-toxic, No Acute Distress Head Exam: Positive for: ATRAUMATIC, NORMOCEPHALIC Skin: Positive for: Normal Color, Warm, Dry Eye Exam: Positive for: EOMI, Normal appearance, PERRL Neck: Positive for: Normal, Painless ROM Cardiovascular/Chest: Negative for: Murmur Respiratory: Positive for: Normal Breath Sounds. Negative for: Respiratory Distress Gastrointestinal/Abdominal: Positive for: Normal Exam, Soft. Negative for: Tenderness Extremity: Positive for: Normal ROM. Negative for: Pedal Edema, Deformity Neurologic/Psych: Positive for: Alert, Oriented. Negative for: Motor/Sensory Deficits - Laboratory Results Result Diagrams: 04/13/18 04:36 04/13/18 04:36 - ECG ECG Rhythm: Positive for: Nonspecific Changes (ST/T wave changes) Interpretation Of ECG: Nonspecific ST/T wave changes. EKG is unchanged from prior. Rate of 67 bpm Rate: 67 O2 Sat by Pulse Oximetry: 97 (RA) Pulse Ox Interpretation: Normal Medical Decision Making Medical Decision Making: Time: 04:09 Initial Impression: 63 y/o with history of HTN, high cholesterol, and MEN2 presents with chest pain. History is very atypical for cardiac chest pain. EKG does not show any new changes. Symptoms are most likely musculoskeletal. Will check blood work and likely refer to PMD. Initial Plan: * EKG * BMP * Troponin * CBC w/ diff 600 Patient with negative workup Patient without pain at this time, comfortable appearing Will discharge home - Scribe Attestation: Documented by Jorge Thomas acting as a scribe for Simon Pollack MD. Provider Scribe Attestation: All medical record entries made by the Scribe were at my direction and per sonally dictated by me. I have reviewed the chart and agree that the record accurately reflects my personal performance of the history, physical exam, medical decision making, and the department course for this patient. I have also personally directed, reviewed, and agree with the discharge instructions and disposition. Disposition - Clinical Impression Clinical Impression: Atypical chest pain - Disposition Referrals: Eva Collazo MD [Family Provider] - Disposition: Routine/Home Disposition Time: 06:00 Condition: STABLE Prescriptions: RX: Ibuprofen [Motrin Tab] 600 mg PO Q6 #30 tab Instructions: Chest Pain That Is Not Caused by the Heart (DC) Forms: [employer] (Anguillan) Print Language: BULGARIAN
[2018-04-13 05:45] LABS: BASO # 0.1 K/uL (0.0-0.2); BASO % 0.7 % (0.0-2.0); EOS # 0.2 K/uL (0.0-0.7); EOS % 2.6 % (0.0-4.0); HEMOGLOBIN 13.8 g/dL (12.0-18.0); LYMPH # 1.8 K/uL (1.0-4.3); LYMPH % 20.1 % (20.0-40.0); MEAN CELL VOLUME 94.1 fl (80.0-94.0); MEAN CORPUSCULAR HEMOGLOBIN 31.4 pg (27.0-31.0); MEAN CORPUSCULAR HGB CONC 33.4 g/dL (33.0-37.0); MEAN PLATELET VOLUME 8.6 fl (7.2-11.7); MONO # 0.8 K/uL (0.0-0.8); MONO % 9.6 % (0.0-10.0); NEUT # 5.9 K/uL (1.8-7.0); RBC 4.38 Mil/uL (4.40-5.90); RED CELL DISTRIBUTION WIDTH 13.3 % (11.5-14.5); WHITE BLOOD COUNT 8.9 K/uL (4.8-10.8)
[2018-04-13 06:32] VITALS: BP 142/85; RESP 20
[2018-04-13 07:27] VITALS: PULSE 67; O2SAT 97
--- NOTE | 2018-04-13 22:34 | CARD ---
APPROVED REPORT Date of service: 04/13/2018 EKG Measurement Heart [id number] <Conclusion> Normal sinus rhythm Minimal voltage criteria for LVH, may be normal variant Nonspecific ST and T wave abnormality Prolonged QT Abnormal ECG
== END 2018-04-13 06:07 | disposition home or self-care (01) ==
LOC: H.ER 03:38
DX: R07.89 Other chest pain (principal); E78.00 Pure hypercholesterolemia, unspecified; I10 Essential (primary) hypertension; Z79.899 Other long term (current) drug therapy